=== PATIENT | male | born 2000 | race Caucasian/White ===

== ENCOUNTER 2018-04-03 17:06 | Emergency (ER) | payer OTHER ==
[~2018-04-03] VITALS: Ht 172.7 cm; Wt 68.0 kg
[2018-04-03 17:52] LABS: ABSOLUTE NEUTROPHILS 5.2 thou/uL (1.4-8.2); BASOPHILS 0.5 % (0.0-2.0); EOSINOPHILS 4.2 % (0.0-3.0); HEMATOCRIT 42.9 % (42.0-52.0); HEMOGLOBIN 14.9 gm/dL (14.0-18.0); MCH 31.5 pg (26.0-34.0); MCHC 34.7 g/dL (28.0-37.0); MCV 90.8 fL (80.0-100.0); MONOCYTES 6.3 % (1.0-8.0); PLATELET COUNT 219 thou/uL (150-400); RBC 4.73 mil/uL (4.50-6.00); RDW 12.3 % (10.5-14.5); WBC 7.5 thou/uL (4.0-11.0)
[2018-04-03 17:53] LABS: URINE BILIRUBIN NEGATIVE (Negative); URINE BLOOD NEGATIVE (Negative); URINE CLARITY CLEAR; URINE COLOR YELLOW; URINE GLUCOSE-RANDOM* NEGATIVE (Negative); URINE KETONES NEGATIVE (Negative); URINE LEUKOCYTES NEGATIVE (Negative); URINE NITRITE NEGATIVE (Negative); URINE PROTEIN (DIPSTICK) NEGATIVE (Negative); URINE SPECIFIC GRAVITY 1.015 (1.005-1.035); URINE UROBILINOGEN 0.2 E.U./dl (0.2-1.0)
[2018-04-03 18:01] LABS: CALCIUM 9.4 mg/dL (8.5-10.1); CREATININE 1.2 mg/dL (0.7-1.3); POTASSIUM 3.6 mmol/L (3.5-5.1)
[2018-04-03 18:08] LABS: ALBUMIN 4.4 g/dL (3.4-5.0); TOTAL BILIRUBIN 0.4 mg/dL (<0.1-1.0); TOTAL PROTEIN 8.2 g/dL (6.4-8.2)
[2018-04-03] MEDS ORDERED: ONDANSETRON HCL4 M2 PO (18:51)
[2018-04-03 19:29] VITALS: BP 99/47
== END 2018-04-03 19:30 | disposition home or self-care (01) ==
LOC: ER 17:06
PROVIDERS: Physician Assistant
DX: I88.0 Nonspecific mesenteric lymphadenitis (principal); J45.909 Unspecified asthma, uncomplicated